=== PATIENT | male | born 1950 | race Caucasian/White ===

== ENCOUNTER 2017-03-18 01:06 | Inpatient (IN) | payer OTHER ==
[~2017-03-18] VITALS: Ht 160 cm; Wt 85.5 kg
[2017-03-18 01:51] LABS: HEMATOCRIT 42.7 % (38.0-50.0); MCH 30.8 PG (29.0-34.0); MCHC 33.5 G/DL (30.0-36.0); MEAN PLAT.VOLUME 9.7 uM^3 (9.0-12.4); PLATELET COUNT 315 K/uL (156-360); RBC DIS.WIDTH-CV 13.1 % (11.8-14.6); RBC DIS.WIDTH-SD 44.5 % (39-53); RED BLOOD COUNT 4.64 M/uL (4.00-5.50); WHITE BLOOD COUNT 13.3 K/uL (4.1-10.2)
[2017-03-18 02:00] LABS: CHLORIDE 102 mEq/L (99-109); POTASSIUM 3.8 mEq/L (3.7-5.4); SODIUM 137 mEq/L (136-147)
[2017-03-18 02:02] LABS: GLUCOSE 108 mg/dL (70-99)
[2017-03-18 02:03] LABS: ANION GAP 8 MEQ/L (2-14)
[2017-03-18 02:06] LABS: UREA NITROGEN (BUN) 21 mg/dL (9-23)
[2017-03-18 02:12] LABS: GFR ESTIMATE (CALCULATED) > 59 mL/min/; TROP-I INTERPRETATION NEGATIVE; TROPONIN-I < 0.01 ng/mL (0.0-0.30)
[2017-03-18 03:41] LABS: TOTAL BILIRUBIN 0.3 mg/dL (0.0-1.0)
[2017-03-18 03:42] LABS: ALKALINE PHOSPHATASE 127 IU/L (3-129)
[2017-03-18 03:44] LABS: DIRECT BILIRUBIN 0.1 mg/dL (0.0-0.3)
[2017-03-18 03:45] LABS: LIPASE 59 U/L (1.0-51.0)
[2017-03-18 07:57] LABS: HEMATOCRIT 37.1 % (38.0-50.0); MCH 30.4 PG (29.0-34.0); MCHC 32.9 G/DL (30.0-36.0); MCV 92.5 FL (86-99); MEAN PLAT.VOLUME 9.5 uM^3 (9.0-12.4); PLATELET COUNT 254 K/uL (156-360); RBC DIS.WIDTH-SD 43.8 % (39-53); RED BLOOD COUNT 4.01 M/uL (4.00-5.50); WHITE BLOOD COUNT 11.6 K/uL (4.1-10.2)
[2017-03-18 09:17] LABS: TROP-I INTERPRETATION NEGATIVE; TROPONIN-I 0.05 ng/mL (0.0-0.30)
[2017-03-18] MEDS ORDERED: LOSARTAN POTASS50 MG PO (10:17)
[2017-03-18] MEDS ORDERED: LO-DOSE ASPIRIN81 M1 PO (10:17)
[2017-03-18] MEDS ORDERED: FLONASE ALLERG9.9 ML BOTH NARES (10:18)
[2017-03-18 12:52] LABS: HEMATOCRIT 35.8 % (38.0-50.0); MCV 92.7 FL (86-99)
[2017-03-18 13:34] VITALS: BP 136/60
[2017-03-18 15:27] LABS: TROP-I INTERPRETATION NEGATIVE; TROPONIN-I 0.09 ng/mL (0.0-0.30)
[2017-03-18 19:35] VITALS: BP 151/72
[2017-03-18 20:14] LABS: HEMATOCRIT 32.6 % (38.0-50.0); MCV 93.4 FL (86-99)
[2017-03-18 23:31] VITALS: BP 129/62
[2017-03-19 03:53] VITALS: BP 131/74
[2017-03-19 06:16] LABS: GFR ESTIMATE (CALCULATED) > 59 mL/min/; GLUCOSE 107 mg/dL (70-99); SAMPLE HEMOLYSIS CHECK 0; SAMPLE ICTERIC CHECK 0; SAMPLE LIPEMIA CHECK 0; UREA NITROGEN (BUN) 14 mg/dL (9-23)
[2017-03-19 06:38] LABS: ANION GAP 5 MEQ/L (2-14); CHLORIDE 113 MEQ/L (99-109); POTASSIUM 3.9 MEQ/L (3.7-5.4); SODIUM 143 MEQ/L (136-147)
[2017-03-19 07:00] VITALS: BP 124/64
[2017-03-19 11:30] VITALS: BP 128/72
[2017-03-19 14:56] VITALS: BP 131/64
[2017-03-19 19:37] VITALS: BP 127/71
[2017-03-19 23:59] VITALS: BP 132/63
[2017-03-20 04:09] VITALS: BP 124/67
[2017-03-20 05:46] LABS: HEMATOCRIT 34.4 % (38.0-50.0); MCH 30.4 PG (29.0-34.0); MCHC 32.8 G/DL (30.0-36.0); MCV 92.5 FL (86-99); MEAN PLAT.VOLUME 9.7 uM^3 (9.0-12.4); PLATELET COUNT 219 K/uL (156-360); RBC DIS.WIDTH-CV 13.2 % (11.8-14.6); RBC DIS.WIDTH-SD 44.8 % (39-53); RED BLOOD COUNT 3.72 M/uL (4.00-5.50)
[2017-03-20 06:24] LABS: ANION GAP 4 MEQ/L (2-14); CHLORIDE 107 MEQ/L (99-109); GFR ESTIMATE (CALCULATED) > 59 mL/min/; GLUCOSE 87 mg/dL (70-99); POTASSIUM 3.9 MEQ/L (3.7-5.4); SAMPLE HEMOLYSIS CHECK 0; SAMPLE ICTERIC CHECK 0; SAMPLE LIPEMIA CHECK 0; SODIUM 138 MEQ/L (136-147); UREA NITROGEN (BUN) 11 mg/dL (9-23)
[2017-03-20 07:30] VITALS: BP 138/66
[2017-03-20] MEDS ORDERED: PANTOPRAZOLE SO40 MG PO (07:44)
== END 2017-03-20 11:54 | disposition home or self-care (01) | DRG 381 ==
LOC: EME 01:06 → EDOF 08:12 → 4EAST 08:12 → ENRESERV 08:16 → 4EAST 12:56
PROVIDERS: Emergency Medicine; Hospitalist; Internal Medicine
PROC: 0DB58ZX Excision of Esophagus, Via Natural or Artificial Opening Endoscopic, Diagnostic (ICD-10-PCS; principal; 2017-03-19)
DX: K22.11 Ulcer of esophagus with bleeding (principal); D62 Acute posthemorrhagic anemia; K25.7 Chronic gastric ulcer without hemorrhage or perforation; K21.0 Gastro-esophageal reflux disease with esophagitis; K44.9 Diaphragmatic hernia without obstruction or gangrene; R00.0 Tachycardia, unspecified; I49.3 Ventricular premature depolarization; I10 Essential (primary) hypertension; E78.2 Mixed hyperlipidemia; E66.01 Morbid (severe) obesity due to excess calories; Z68.36 Body mass index [BMI] 36.0-36.9, adult; Z86.73 Personal history of transient ischemic attack (TIA), and cerebral infarction without residual deficits; Z85.46 Personal history of malignant neoplasm of prostate; Z79.82 Long term (current) use of aspirin; Z83.3 Family history of diabetes mellitus
CPT/HCPCS: 71020; 74177; 80048; 80076; 83605; 83690; 84484; 85014; 85018; 85027; 86850; 86900; 86901; 88305; 93005; 99281; 99285; C9113; J1200; J2270; J2405; J3230; J7030; J7042; J7050; S0028